=== PATIENT | female | born 1955 | race Caucasian/White ===

== ENCOUNTER 2023-05-13 17:23 | Emergency (ER) | payer MEDICARE, OTHER ==
[2023-05-13] MEDS ORDERED: Bacitracin Oint 1 GM U/D Packet TOP ONE (17:33)
[2023-05-13] MEDS ORDERED: Lidocaine 1% 5 ML VIAL INJECT ONE (17:33)
== END 2023-05-13 18:00 | disposition home or self-care (01) ==
LOC: DL.ED 17:23
DX: S61.012A Laceration without foreign body of left thumb without damage to nail, initial encounter (principal); W25.XXXA Contact with sharp glass, initial encounter; Y93.G1 Activity, food preparation and clean up
CPT/HCPCS: 12001; 99282; A9270; J3490